=== PATIENT | male | born 1955 | race Caucasian/White ===

== ENCOUNTER → 2017-06-05 | Outpatient (CLI) | payer MEDICARE ==
[2017-06-05 20:14] LABS: Hemoglobin A1C 10.4 % (4.2-6.1)
== END | disposition home or self-care (01) ==
LOC: LABWHC1 15:48
PROVIDERS: ATTEND Family Medicine
DX: E11.9 Type 2 diabetes mellitus without complications (principal)
CPT/HCPCS: 36415; 83036; 84132

== ENCOUNTER → 2020-11-29 | Outpatient (CLI) | payer MEDICARE ==
--- NOTE | 2020-11-29 10:44 | XR ---
EXAMINATION TYPE: XR chest 2V DATE OF EXAM: 11/29/2020 COMPARISON: 04/29/2016 TECHNIQUE: PA and lateral views submitted. HISTORY: Shortness of breath FINDINGS: The lungs are clear and there is no pneumothorax, pleural effusion, or focal pneumonia. Cardiac dis ease and postoperative change. Heart size normal. Minimal blunting of the left costophrenic angle. Co ronary stent noted. Arthropathy of the shoulders. IMPRESSION: 1. Acute process.
== END | disposition home or self-care (01) ==
LOC: LABWHC1 10:07
PROVIDERS: ATTEND Internal Medicine Cardiovascular Disease
DX: R06.02 Shortness of breath (principal)
CPT/HCPCS: 36415; 71046; 83880

== ENCOUNTER → 2021-08-28 | Outpatient (CLI) | payer MEDICARE | END | disposition home or self-care (01) | LOC: LABPAT 10:04 | PROVIDERS: ATTEND Urology | DX: Z01.812 Encounter for preprocedural laboratory examination (principal); N40.1 Benign prostatic hyperplasia with lower urinary tract symptoms; N39.0 Urinary tract infection, site not specified | CPT/HCPCS: 81003; 86850; 86900; 86901; 87086 ==

== ENCOUNTER 2021-09-06 10:37 | Inpatient (IN) | payer MEDICARE ==
[2021-08-28 11:02] LABS: Appearance,Urine Clear (Clear); Bilirubin,Urine Negative (Negative); Blood,Urine Negative (Negative); Color,Urine Yellow; Glucose,Urine (UA) 4+ (Negative); Ketones,Urine Negative (Negative); Leukocyte Esterase,Urine Negative (Negative); Nitrite,Urine Negative (Negative); Protein,Urine Negative (Negative); Specific Gravity,Urine 1.017 (1.001-1.035); Urobilinogen,Urine <2.0 mg/dL (<2.0)
[2021-08-29 18:44] VITALS: BMI 25.8
[~2021-09-06 10:37] MED LIST: DEXAMETHASONE SOD PHOSPHATE 4 MG/ML 1 ML VIAL IV ONE; HEPARIN SODIUM,PORCINE/PF 5,000 UNIT/0.5 ML SYRINGE SQ PRN; HYDROmorphone 0.5 MG/0.5 ML SYRINGE IVP PRN; LIDOCAINE 1% (10MG/ML) FOR IV START INTRADERMA PRN; ONDANSETRON 4 MG/2 ML VIAL IVP ONE
[2021-09-06] MEDS: LACTATED RINGERS 1,000 ML IV SCH (11:18)
[2021-09-06 11:22] LABS: Glucose,Whole Blood 202 mg/dL (75-99)
[2021-09-06] MEDS ORDERED: MIDAZOLAM 2 MG/2 ML VIAL IVP ONE (12:09)
[2021-09-06] MEDS ORDERED: PROPOFOL 10 MG/ML 20 ML VIAL IV ONE (12:24)
[2021-09-06] MEDS ORDERED: PHENYLEPHRINE-0.9% NACL SYG 1,000 MCG/10 ML SYRINGE ONE (12:24)
[2021-09-06] MEDS ORDERED: ROCURONIUM 10 MG/ML (5 ML VIAL) IV ONE (12:24)
[2021-09-06] MEDS ORDERED: SUCCINYLCHOLINE CHLORIDE 100 MG/5 ML SYR IV ONE (12:24)
[2021-09-06] MEDS ORDERED: NEOSTIGMINE 1 MG/ML 10 ML VIAL ONE (12:24)
[2021-09-06] MEDS ORDERED: SODIUM CHLORIDE 0.9% (PF) 10 ML VIAL ONE (12:24)
[2021-09-06] MEDS ORDERED: fentaNYL (PF) 50 MCG/ML 2 ML AMP ONE (12:24)
[2021-09-06] MEDS ORDERED: HYDROmorphone (PF) 1 MG/ML ONE (12:24)
[2021-09-06] MEDS ORDERED: LIDOCAINE 1% INJ 10MG/ML (20 ML MDV) ONE (12:24)
[2021-09-06] MEDS ORDERED: GLYCOPYRROLATE 0.2 MG/ML 2 ML VIAL ONE (12:24)
[2021-09-06] MEDS ORDERED: ROPIVACAINE 5 MG/ML 30 ML VIAL ONE (12:24)
[2021-09-06] MEDS ORDERED: KETOROLAC 30 MG/ML 1 ML VIAL IVP PRN (12:36)
[2021-09-06] MEDS ORDERED: HYDROcodone/APAP 5-325MG 1 EACH TAB PO PRN (12:38)
--- NOTE | 2021-09-06 12:40 | P.HPIHPCON ---
History of Present Illness H&P Date: 09/03/21 Chief Complaint: Urinary retention, BPH This is a 66 yo male with hx of urinary retention, Underwent a CT which showed a prostate size of 110 gram Discussed given the size of his prostate the recommended approach is either a HoLEP or Robotic simple prostatecomy. discussed the risk and benefit of each procedure in detail. He agreed to proceed with a robotic simple prostatectomy. Discussed with him the risk of surgery which includes but not limited to bleeding, infection, injury to nearby organs which includes but not limited to bowel, ureter, rectum, or blood vessels.. Discussed also with him risk from anesthesia which includes but not limited to heart attack, stroke, blood clots. Discussed with him also the risk of persistent retention even with simple prost atectomy. Discussed the risk of erectile dysfunction and urinary incontinence. He understood all the risk and agreed to proceed Consent for Procedure: I have explained the operation/procedure to the patient, including the risks, benefits, side effects, alternative therapies (including not receiving the proposed treatment or service), the likelihood of the patient achieving his/her goals, and potential recuperation problems for the procedure/sedation/analgesia, as well as any blood products, if indicated. I also explained to the patient the risks, benefits and side effects of the alternatives, as well as the risks related to not receiving the proposed procedure, care, treatment, or services. Past Medical History Past Medical History: Coronary Artery Disease (CAD), Chest Pain / Angina, Diabetes Mellitus, Hyperlipidemia, Hypertension, Myocardial Infarction (ID), Prostate Disorder Additional Past Medical History / Comment(s): Difficulty emptying his bladder D/T enlarged prostate. AICD, [facility]. Last Myocardial Infarction Date:: 2010 History of Any Multi-Drug Resistant Organisms: None Reported Past Surgical History: AICD, Coronary Bypass/CABG, Heart Catheterization With Stent Additional Past Surgical History / Comment(s): Triple CABG. PTCA w/ x6 stents, 06-25-16 EP STUDY CARDIAC ABLATION. AICD Past Anesthesia/Blood Transfusion Reactions: No Reported Reaction Date of Last Stent Placement:: unsure Type of Cardiac Device: AICD Device Placement Date:: 2015 Smoking Status: Current every day smoker - Past Family History Mother Family Medical History: Cancer, Sleep Apnea/CPAP/BIPAP Additional Family Medical History / Comment(s): BREAST CANCER Father Family Medical History: Congestive Heart Failure (CHF), COPD Medications and Allergies Home Medications Medication Instructions Recorded Confirmed Type Aspirin EC [Ecotrin Low Dose] 81 mg PO DAILY 04/25/16 09/06/21 History Atorvastatin [Lipitor] 80 mg PO HS 04/25/16 09/06/21 History Glimepiride [Amaryl] 4 mg PO BID 04/25/16 09/06/21 History metFORMIN HCL [Glucophage] 1,000 mg PO BID 04/25/16 09/06/21 History Metoprolol Succinate [Toprol XL] 100 mg PO DAILY #90 tab 04/29/16 09/06/21 Rx Multivitamins, Thera [Multivitamin 1 tab PO DAILY 08/29/21 09/06/21 History (formulary)] Tamsulosin [Flomax] 0.4 mg PO BID 08/29/21 09/06/21 History lisinopriL [Zestril] 10 mg PO 1900 08/29/21 09/06/21 History Allergies Allergy/AdvReac Type Severity Reaction Status Date / Time No Known Allergies Allergy Verified 09/06/21 10:57 Surgical - Exam - General no distress - ENT normal nares, normal mucosa - Respiratory normal expansion, normal respiratory effort - Psychiatric oriented to time, oriented to person, oriented to place Results - Labs 09/06/21 11:20 Assessment and Plan Assessment: OR for robotic simple prostatectomy
--- NOTE | 2021-09-06 12:49 | P.ANPRN ---
Procedure Note - Anesthesia - Nerve Block Performed Bilateral Erector Spinae Single Time Out Performed: Yes (1208) Date of Procedure: 09/06/21 Procedure Start Time: 12:09 Procedure Stop Time: 12:16 Location of Patient: PreOp Indication: Acute Post-Operative Pain, Requested by Surgeon Specifically requested for management of pain by : Marty Chávez Sedation Type: Sedate with meaningful contact maintained Preparation: Sterile Prep Position: Prone Catheter: None Needle Types: Pajunk Needle Gauge: 21 Ultrasound used to visualize needle placement: Yes Ultrasound used to observe medication spread: Yes Injectate: 0.5% Ropivacaine (see comment for volume) (15cc + 15cc nacl pf) Blood Aspirated: No Pain Paresthesia on Injection Noted: No Resistance on Injection: Normal Image Stored and Saved: Yes Events: Uneventful and Well Tolerated
[2021-09-06] MEDS ORDERED: BUPIVACAINE (PF) 0.25% 30 ML VIAL SQ ONE ×2 (13:02→15:13)
--- NOTE | 2021-09-06 15:07 | P.OP ---
Date of Procedure: 09/06/21 Preoperative Diagnosis: BPH with obstruction Postoperative Diagnosis: Same Procedure(s) Performed: Robotic-assisted laparoscopic simple prostatectomy Implants: None Anesthesia: GERA Surgeon: Marty Chávez Ultrasonic Tester #1: Eamon Aleman Estimated Blood Loss (ml): 100 Pathology: other (Prostate adenoma) Condition: stable Disposition: PACU Indications for Procedure: This is a 66 yo male with hx of urinary retention, Underwent a CT which showed a prostate size of 110 gram Discussed given the size of his prostate the recommended approach is either a HoLEP or Robotic simple prostatecomy. discussed the risk and benefit of each procedure in detail. He agreed to proceed with a robotic simple prostatectomy. Discussed with him the risk of surgery which includes but not limited to bleeding, infection, injury to nearby organs which includes but not limited to bowel, ureter, rectum, or blood vessels.. Discussed also with him risk from anesthesia which includes but not limited to heart attack, stroke, blood clots. Discussed with him also the risk of persistent retention even with simple prostatectomy. Discussed the risk of erectile dysfunction and urinary incontinence. He understood all the risk and agreed to proceed Description of Procedure: After preoperative antibiotics were started, the patient was taken to the operating room. Anesthesia was induced and the patient was placed in a supine position with adequate padding of the pressure points, shoulders, back, legs and arms. He was then prepped and draped in the standard fashion. A critical pause was performed using two patient identifiers. A 16F crawley catheter was placed to gravity drainage. A pneumoperitoneum was obtained using a Veress needle, after pneumoperitoneum was obtained a 8 mm camera port was placed. Under direct vision a 8mm robotic ports was placed lateral to each rectus slightly below the camera port. The left iliac fossa 8mm port was placed. The right certified medical assistant right iliac fossa 12mm port and right paramedian 5mm portwere placed. After the patient was placed in the trendelenberg position, the robot was then docked to the 8mm robotic ports and then each robotic arm and tower was checked in relation to the patient's legs and hands to avoid inadvertent compression. The peritoneal cavity was inspected. Adhesions were taken down along the left lower quadrant An inverted U-shaped incision began laterally to the left medial umbilical ligament and extended high across the midline to the right umbilical ligament. The limbs of the "U" extended to the level of the vasa on both sides. We next developed the preperitoneal space and the space of Retzius. of Cautery was used to dissected the bladder away from the prostate, the incision was made in close proximity to the prostate, and incision was extended laterally and at this point the plane between the adenoma and the surgical capsule is identified. Both ureteral orifices were identified and neither was injured during the dissection . The adenoma was dissected off of the capsule by combination of blunt dissection and minimum cautery. dissection was initially started along the anterior surface and posterior surface of adenoma, and this was carried laterally. The dissection was carried to the apex, at this point the urethral-prostatic junction was visualized and the prostate was transected at the junction. Prostate adenoma was placed in an endocatch bag . A 9and 6 inch 3-0 V-Lock suture was used to anastomose the urethra and bladder, starting at the 6:00 posterior position. Mucosa was secured in every stitch, to ensure a mucosa to mucosa anastomosis. The stitch was regularly cinched and the anastomosis tightened. . The 20 Fr Crawley catheter was advanced, the bladder filled, and the anastomosis was tested. Anastomsis was watertight at 150 mL. balloon was inflated to 10 mL The robot was undocked. specimen was extracted from the supraumbilical incision. The periumbilical fascia was closed with 1-0-PDS suture in figure of 8 fashion. All ports were closed with a subcuticular 4-0 monocryl and Dermabond. Sponge, instrument, and needle counts were correct at the end of the case x2. The patient tolerated the surgery well and without complication. He awoke without difficulty and was taken to the recovery room in stable condition
[2021-09-06 15:36] LABS: Glucose,Whole Blood 245 mg/dL (75-99)
[2021-09-06] MEDS: SODIUM CHLORIDE 0.9% 1,000 ML IV SCH ×3 (16:12→22:09)
[2021-09-06] MEDS ORDERED: INSULIN ASPART (NovoLOG) 100 UNIT/ML VIAL SQ ONE (16:17)
[2021-09-06] MEDS: HEPARIN SODIUM,PORCINE/PF 5,000 UNIT/0.5 ML SYRINGE SQ SCH ×2 (17:03→21:03)
[2021-09-06] MEDS ORDERED: lisinopriL 10 MG TAB PO SCH (19:00)
[2021-09-06 20:05] LABS: Glucose,Whole Blood 179 mg/dL (75-99)
[2021-09-06] MEDS ORDERED: ATORVASTATIN 80 MG TAB PO SCH (21:00)
[2021-09-06] MEDS: metFORMIN 500 MG TAB PO SCH (21:03)
[2021-09-06] MEDS: GLIMEPIRIDE 4 MG TAB PO SCH (21:03)
[2021-09-07] MEDS: SODIUM CHLORIDE 0.9% 1,000 ML IV SCH (03:39)
[2021-09-07] MEDS: LACTATED RINGERS 1,000 ML IV SCH (05:43)
[2021-09-07 06:58] LABS: Glucose,Whole Blood 114 mg/dL (75-99)
[2021-09-07] MEDS: GLIMEPIRIDE 4 MG TAB PO SCH (08:06)
[2021-09-07] MEDS: metFORMIN 500 MG TAB PO SCH (08:06)
[2021-09-07] MEDS: HEPARIN SODIUM,PORCINE/PF 5,000 UNIT/0.5 ML SYRINGE SQ SCH (08:06)
[2021-09-07] MEDS ORDERED: METOPROLOL SUCCINATE (ER) 100 MG TAB.ER.24H PO SCH (09:00)
[2021-09-07 09:23] VITALS: BP 121/65; PULSE 79; RESP 17; TEMP 99.2
--- NOTE | 2021-09-07 11:02 | P.DS ---
Providers Date of admission: 09/06/21 10:37 Expected date of discharge: 09/07/21 Attending physician: Marty Chávez MD Primary care physician: Jelani Jorge Hospital Course: On the day of admission, the patient underwent an uncomplicated robotic-assisted laparoscopic simple prostatectomy. The perioperative course was uncomplicated. The patient remained afebrile with stable vital signs. On the first postoperative day, his only complaint was minimal incisional discomfort. He denied nausea, vomiting, chest pain, and shortness of breath. He tolerated breakfast. He had not yet ambulated. On examination, the abdomen was soft and nondistended. Incisions were clean and dry. The Herbert catheter was draining blood-tinged urine. Procedures: Robotic-assisted laparoscopic simple prostatectomy on 09/06/2021 Patient Condition at Discharge: Good Plan - Discharge Summary Discharge Rx Participant: Yes New Discharge Prescriptions: New Ketorolac [Toradol] 10 mg PO Q6HR PRN #12 tab PRN Reason: Pain No Action Atorvastatin [Lipitor] 80 mg PO HS metFORMIN HCL [Glucophage] 1,000 mg PO BID Glimepiride [Amaryl] 4 mg PO BID Aspirin EC [Ecotrin Low Dose] 81 mg PO DAILY Metoprolol Succinate [Toprol XL] 100 mg PO DAILY #90 tab lisinopriL [Zestril] 10 mg PO 1900 Multivitamins, Thera [Multivitamin (formulary)] 1 tab PO DAILY Tamsulosin [Flomax] 0.4 mg PO BID Discharge Medication List Aspirin EC [Ecotrin Low Dose] 81 mg PO DAILY 04/25/16 [History] Atorvastatin [Lipitor] 80 mg PO HS 04/25/16 [History] Glimepiride [Amaryl] 4 mg PO BID 04/25/16 [History] metFORMIN HCL [Glucophage] 1,000 mg PO BID 04/25/16 [History] Metoprolol Succinate [Toprol XL] 100 mg PO DAILY #90 tab 04/29/16 [Rx] Multivitamins, Thera [Multivitamin (formulary)] 1 tab PO DAILY 08/29/21 [History] Tamsulosin [Flomax] 0.4 mg PO BID 08/29/21 [History] lisinopriL [Zestril] 10 mg PO 1900 08/29/21 [History] Ketorolac [Toradol] 10 mg PO Q6HR PRN #12 tab 09/07/21 [Rx] Follow up Appointment(s)/Referral(s): Marty Chávez MD [STAFF PHYSICIAN] - 09/17/21 Patient Instructions/Handouts: Herbert Catheter Placement and Care (DC), Urinary Leg Bag (GEN), Robot Assisted Laparoscopic Prostatectomy (DC) Activity/Diet/Wound Care/Special Instructions: Discharge home with Herbert catheter. Diet as tolerated. Avoid strenuous activity. No lifting or driving. Patient may shower. Discharge Disposition: HOME SELF-CARE
== END 2021-09-07 12:25 | disposition home or self-care (01) | DRG 707 ==
LOC: 2ORMAIN 10:37 → 4SSUR 16:51
PROVIDERS: ADMIT Urology; ATTEND Urology
PROC: 8E0W4CZ Robotic Assisted Procedure of Trunk Region, Percutaneous Endoscopic Approach (ICD-10-PCS; principal; 2021-09-06 12:30)
PROC: 0VT04ZZ Resection of Prostate, Percutaneous Endoscopic Approach (ICD-10-PCS; principal; 2021-09-06 12:30)
DX: N40.1 Benign prostatic hyperplasia with lower urinary tract symptoms (principal); N13.8 Other obstructive and reflux uropathy; E11.9 Type 2 diabetes mellitus without complications; Z20.822 Contact with and (suspected) exposure to COVID-19; R33.8 Other retention of urine; E78.2 Mixed hyperlipidemia; I10 Essential (primary) hypertension; I25.2 Old myocardial infarction; I25.10 Atherosclerotic heart disease of native coronary artery without angina pectoris; F17.210 Nicotine dependence, cigarettes, uncomplicated; Z79.899 Other long term (current) drug therapy; Z79.82 Long term (current) use of aspirin; Z95.810 Presence of automatic (implantable) cardiac defibrillator; Z95.1 Presence of aortocoronary bypass graft; Z95.5 Presence of coronary angioplasty implant and graft; Z80.3 Family history of malignant neoplasm of breast; Z82.49 Family history of ischemic heart disease and other diseases of the circulatory system; Z83.6 Family history of other diseases of the respiratory system; Z82.5 Family history of asthma and other chronic lower respiratory diseases
CPT/HCPCS: 64999; 81003; 84132; 86850; 86900; 86901; 87086; 87635; 88307

== ENCOUNTER → 2023-04-02 | Outpatient (CLI) | payer MEDICARE ==
--- NOTE | 2023-04-02 09:43 | CTL ---
EXAMINATION TYPE: CT Low Dose Lung DATE OF EXAM ORDERED: 04/02/2023 COMPARISON: None HISTORY: . Low Dose CT Lung Screening CT DLP: [address] CTDI: 2.80 mGy IV CONTRAST USED: None. SCREENING VISIT: First visit COMPARISON: None. TECHNIQUE: Low dose computed tomography scan was performed through the chest at 1 millimeter thick se ctions and reconstructed images in the coronal plane at [address] DIAGNOSTIC QUALITY: Satisfactory FINDINGS: LUNG NODULES: Not presentLeft lung: no nodules identified.Right lung: no nodules identified. LUNGS: COPD: Severity: Mild Fibrosis: Severity:None Lymph nodes: None Other findings: None RIGHT PLEURAL SPACE: Effusion: None Calcification: None Thickening: None Pneumothorax: None LEFT PLEURAL SPACE: Effusion: None Calcification: None Thickening: None Pneumothorax: None HEART: Heart Size: Mildly enlarged Coronary calcification: Mild Pericardial effusion: None OTHER FINDINGS: Upper abdomen: No significant abnormality Bony thorax: Degenerative changes Supraclavicular region: No significant abnormalityOther: No significant abnormalityI IMPRESSION: No nodularity identified at this time. FOLLOW UP CT CHEST RECOMMENDATION: Follow-up screening in one year CT LUNG RAD: LUNG RAD CATEGORY 1 negative
== END | disposition home or self-care (01) ==
LOC: RADCTMAIN 07:57
PROVIDERS: ATTEND Family Medicine
DX: Z12.2 Encounter for screening for malignant neoplasm of respiratory organs (principal); F17.210 Nicotine dependence, cigarettes, uncomplicated
CPT/HCPCS: 71271